=== PATIENT | male | born 1955 | race Caucasian/White ===

== ENCOUNTER → 2016-11-08 | Outpatient (CLI) | payer OTHER ==
[~2016-11-08] VITALS: Ht 177.8 cm; Wt 97.0 kg
[~2016-11-08] MED LIST: ALLO100T PO; AMLO-511 PO; ASPI-556 PO; CALC1TAB15 PO; DOXY100C40 PO; FERR-89 PO; FURO20 PO; GABA-531 PO; GEMF600T3 PO; GLIP5TAB11 PO; INSU500V SQ; LISI30TA4 PO; LOSA50TA37 PO; METF500T4 PO; METH10SO PO; OS500 PO; PANT40TA25 PO; PARO10TA89 PO; POTA8TAB4 PO; TRAM50TA4 PO
[2016-11-08 14:09] VITALS: BP 127/80
== END | disposition home or self-care (01) ==
LOC: HBOWC 13:35
PROVIDERS: ATTEND Emergency Medicine
DX: E11.621 Type 2 diabetes mellitus with foot ulcer (principal); L97.521 Non-pressure chronic ulcer of other part of left foot limited to breakdown of skin; E11.22 Type 2 diabetes mellitus with diabetic chronic kidney disease; I13.0 Hypertensive heart and chronic kidney disease with heart failure and stage 1 through stage 4 chronic kidney disease, or unspecified chronic kidney disease; N18.9 Chronic kidney disease, unspecified; I50.9 Heart failure, unspecified; E66.9 Obesity, unspecified; G89.29 Other chronic pain; I87.2 Venous insufficiency (chronic) (peripheral); K21.9 Gastro-esophageal reflux disease without esophagitis; Z79.82 Long term (current) use of aspirin; F17.210 Nicotine dependence, cigarettes, uncomplicated; B19.20 Unspecified viral hepatitis C without hepatic coma; F11.10 Opioid abuse, uncomplicated
CPT/HCPCS: 97597; G0463

== ENCOUNTER → 2016-11-20 | Outpatient (CLI) | payer OTHER ==
[~2016-11-20] MED LIST changes: -CALC1TAB15 PO; -GABA-531 PO; +LIDOCAINE HCL 2% 5 ML JELLY TP ONE; -LISI30TA4 PO; -PARO10TA89 PO; -POTA8TAB4 PO; -TRAM50TA4 PO
[2016-11-20 10:15] VITALS: BP 137/71
== END | disposition home or self-care (01) ==
LOC: HBOWC 09:11
PROVIDERS: ATTEND Emergency Medicine
DX: E11.621 Type 2 diabetes mellitus with foot ulcer (principal); L97.521 Non-pressure chronic ulcer of other part of left foot limited to breakdown of skin; I87.2 Venous insufficiency (chronic) (peripheral); E11.22 Type 2 diabetes mellitus with diabetic chronic kidney disease; I13.0 Hypertensive heart and chronic kidney disease with heart failure and stage 1 through stage 4 chronic kidney disease, or unspecified chronic kidney disease; N18.9 Chronic kidney disease, unspecified; I50.9 Heart failure, unspecified; K21.9 Gastro-esophageal reflux disease without esophagitis; B19.20 Unspecified viral hepatitis C without hepatic coma; E66.9 Obesity, unspecified; G89.29 Other chronic pain; Z79.82 Long term (current) use of aspirin; F11.10 Opioid abuse, uncomplicated; F17.210 Nicotine dependence, cigarettes, uncomplicated
CPT/HCPCS: 97597

== ENCOUNTER → 2016-12-04 | Outpatient (CLI) | payer OTHER ==
[~2016-12-04] MED LIST changes: -LIDOCAINE HCL 2% 5 ML JELLY TP ONE
[2016-12-04 10:45] VITALS: BP 154/90
== END | disposition home or self-care (01) ==
LOC: HBOWC 10:11
PROVIDERS: ATTEND Emergency Medicine
DX: E11.621 Type 2 diabetes mellitus with foot ulcer (principal); L97.522 Non-pressure chronic ulcer of other part of left foot with fat layer exposed; I87.2 Venous insufficiency (chronic) (peripheral); E11.22 Type 2 diabetes mellitus with diabetic chronic kidney disease; I13.0 Hypertensive heart and chronic kidney disease with heart failure and stage 1 through stage 4 chronic kidney disease, or unspecified chronic kidney disease; N18.9 Chronic kidney disease, unspecified; I50.9 Heart failure, unspecified; K21.9 Gastro-esophageal reflux disease without esophagitis; Z79.82 Long term (current) use of aspirin; F17.210 Nicotine dependence, cigarettes, uncomplicated; E66.9 Obesity, unspecified; F11.10 Opioid abuse, uncomplicated; G89.29 Other chronic pain; B19.20 Unspecified viral hepatitis C without hepatic coma
CPT/HCPCS: 11721; 97597